=== PATIENT | male | born 1990 | race African-American/Black ===

== ENCOUNTER 2016-03-23 13:42 | Emergency (ER) | payer OTHER ==
[2016-03-23 13:52] VITALS: BP 139/76
--- NOTE | 2016-03-23 15:03 | ERNOTE ---
Date of Service: 03/23/16 Time Seen by Provider: 03/23/16 14:39 Stated Complaint: URI Presenting Symptoms:: cough, runny nose, fever Source: patient Exam Limitations: no limitations Immunizations: IMMUNIZATION HX Immunizations Up to Date Yes History of Influenza Vaccine No Hx Pneumococcal Vaccination No Allergies/Adverse Reactions: Allergies No Known Drug Allergies Allergy (Verified 03/23/16 13:53) Home Medications: HOME MEDICATIONS Albuterol Sulfate [Proair Hfa] 1 - 2 puff IH Q4H PRN #1 inhaler 03/23/16 [Last Taken Unknown] Azithromycin [Zithromax] 500 mg PO NOW #6 tab 03/23/16 [Last Taken Unknown] Benzonatate [Tessalon Perle] 100 mg PO TID PRN #14 capsule 03/23/16 [Last Taken Unknown] Prednisone 50 mg PO DAILY #5 tablet 03/23/16 [Last Taken Unknown] - History of Present Ilness Narrative: Patient comes in with cough that is been going on for greater than 2 weeks, recently seen at another facility, started on an antibiotic, inhaler but 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 [id number] cough medication without any good results, denies any chest pain,abdominal pain, headache or dizziness. Date (Duration): 03/09/16 Timing: constant Severity: mild Frequency/Possible Cause: Reports: occasional episodes Modifying Factors - Worsens: Reports: activity Associated Symptoms: Reports: cough, nasal congestion, nasal drainage, sore throat, fever/chills - states he's had a fever since last night, undocumented Prior Treatment: Reports: recently seen, treated by physician, currently on antibiotics Review of Systems - Review of Systems Constitutional: Present: fever. Absent: chills, diaphoresis, weakness, fatigue , malaise, weight loss ENT: Present: nose congestion, nasal drainage, sore throat Respiratory: Present: cough. Absent: shortness of breath, orthopnea, wheezing Cardiology: Absent: chest pain, palpitations, syncope Gastrointestinal/Abdominal: Absent: nausea, vomiting, diarrhea Musculoskeletal: Present: no symptoms reported Skin: Present: no symptoms reported - Patient's Past Medical History Patient History - Medical: No pertinent hx Patient History - Cardiac/Respiratory: No pertinent hx Patient History - Cancer: No Hx of Cancer Patient History - Surgical Procedures: No surgical history - Social History Living Situations: home Smoking Status: Current every day smoker Have you smoked in the past 12 months: Yes Alcohol Use: occasionally Drug Use: none Physical Exam - Physical Exam General Appearance: Present: wd/wn, alert, no apparent distress Ears, Nose, Throat: Present: normal ENT inspection, sinus pain/drainage, pharyngeal erythema Neck: Present: normal inspection, nontender Respiratory: Present: no respiratory distress, normal breath sounds, no accessory muscle use, chest nontender, lungs clear Cardiovascular/Chest: Present: regular rate, rhythm, no murmur, normal peripheral pulses Gastrointestinal/Abdominal: Present: normal bowel sounds, nontender, no organomegaly Neurological Exam: Present: alert, oriented, normal mood/affect Skin Exam: Present: normal color, warm/dry Lymphatic Exam: Present: no adenopathy ED Progress - Date and Time Seen: Date and Time: 03/23/16 14:50 Stent will be discharged with prescription for antibiotics and inhaler, prednisone, and Tessalon Perles. The patient that this could take some time before clears up. He needs to get on his medications as prescribed and try to get a family doctor the next few days Ring back to the ER with any change or worsening symptoms. warning signs and symptoms have been reviewed with the patient and return back to the ER with good understanding - Vital Signs Patient's Vital Signs:: I have reviewed the patient's vital signs. Vital Signs: Vital Signs 03/23/16 13:48 Temperature 35.4 C L Pulse Rate 89 Respiratory 16 Rate Blood Pressure 139/76 O2 Sat by Pulse 99 Oximetry - Progress/Reassessment Chief Complaint: Upper Respiratory Symptoms Progress:: Unchanged - Transfer of Care Expected Disposition: Discharge Departure - Departure Clinical Impression: Cough Bronchitis, acute Qualifiers: Bronchitis organism: unspecified organism Qualified Code(s): J20.9 - Acute bronchitis, unspecified Disposition: Home self-care Condition: Good Instructions: Acute Bronchitis Prescriptions: Albuterol Sulfate [Proair Hfa] 1 - 2 puff IH Q4H PRN #1 inhaler PRN Reason: Shortness Of Breath Azithromycin [Zithromax] 500 mg PO NOW #6 tab Benzonatate [Tessalon Perle] 100 mg PO TID PRN #14 capsule PRN Reason: Cough Prednisone 50 mg PO DAILY #5 tablet
== END 2016-03-23 15:00 | disposition home or self-care (01) ==
LOC: ER 13:42
DX: J20.9 Acute bronchitis, unspecified (principal); F17.210 Nicotine dependence, cigarettes, uncomplicated

== ENCOUNTER 2016-04-13 16:02 | Emergency (ER) | payer OTHER ==
[2016-04-13 16:15] VITALS: BP 152/87
--- NOTE | 2016-04-13 17:52 | ERNOTE ---
Time Seen by Provider: 04/13/16 17:30 Stated Complaint: COLD COUGH Presenting Symptoms:: cough Immunizations: IMMUNIZATION HX Immunizations Up to Date Yes History of Influenza Vaccine No Hx Pneumococcal Vaccination No Allergies/Adverse Reactions: Allergies benzonatate [From Fredy Squires] Allergy (Intermediate, Verified 04/13/16 16: 17) Swelling of Throat No Known Drug Allergies Allergy (Verified 03/23/16 13:53) Home Medications: HOME MEDICATIONS Albuterol Sulfate [Proair Hfa] 1 - 2 puff IH Q4H PRN #1 inhaler 03/23/16 [Last Taken Unknown] Promethazine HCl/Codeine [Phenergan W/Codeine Syrup] 5 ml PO QPM PRN #60 ml 05/25 [Last Taken Unknown] - History of Present Ilness Narrative: Patient has had a cough for a week, dry mainly, no shortness of breath. He was seen for a URI a couple of weeks ago and symptoms resolved, was exposed to his young children. He has been using albuterol, mucinex and another over the counter medication with some relieve. His main concern is to get medication that helps him sleep as the cough keeps him from sleeping Review of Systems - Review of Systems Constitutional: Present: recent illness. Absent: fever, chills ENT: Present: nose pain, nose congestion. Absent: sore throat Respiratory: Present: See HPI, cough. Absent: shortness of breath Cardiology: Absent: chest pain Gastrointestinal/Abdominal: Absent: nausea, vomiting, diarrhea, abdominal pain Musculoskeletal: Absent: muscle pain Skin: Absent: rash Neurological: Present: headache - Patient's Past Medical History Patient History - Medical: No pertinent hx Patient History - Cardiac/Respiratory: No pertinent hx Patient History - Cancer: No Hx of Cancer Patient History - Surgical Procedures: No surgical history Patient History - Other: None - Social History Living Situations: home Abuse History: No History of abuse Psych History: No pertinent hx Smoking Status: Current every day smoker Alcohol Use: occasionally Drug Use: none - Immunizations Immunizations Up to Date: Yes Hx Pneumococcal Vaccination: No History of Influenza Vaccine: No Physical Exam - Physical Exam General Appearance: Present: wd/wn, alert, no apparent distress Eye Exam: Normal inspection: bilateral Ears, Nose, Throat: Present: nasal congestion, normal pharynx Neck: Absent: lymphadenopathy (R), lymphadenopathy (L) Respiratory: Present: no respiratory distress, normal breath sounds, no accessory muscle use, lungs clear Cardiovascular/Chest: Present: regular rate, rhythm, no murmur Neurological Exam: Present: alert, oriented, normal mood/affect Skin Exam: Present: normal color, warm/dry ED Progress - Vital Signs Patient's Vital Signs:: I have reviewed the patient's vital signs. Vital Signs: Vital Signs 04/13/16 16:11 Temperature 36.0 C L Pulse Rate 113 H Respiratory 20 Rate Blood Pressure 152/87 O2 Sat by Pulse 99 Oximetry - Progress/Reassessment Chief Complaint: Cough Departure - Departure Clinical Impression: Upper respiratory infection Qualifiers: URI type: unspecified viral URI Qualified Code(s): J06.9 - Acute upper respiratory infection, unspecified Disposition: Home self-care Condition: Good Instructions: Upper Respiratory Infection, Adult, [id number] Additional Instructions: call to get established with a primary care doctor Referrals: Emily Jenkins DO [Staff Physician] - Prescriptions: Promethazine HCl/Codeine [Phenergan W/Codeine Syrup] 5 ml PO QPM PRN #60 ml PRN Reason: Cough
== END 2016-04-13 18:17 | disposition home or self-care (01) ==
LOC: ER 16:02
DX: J06.9 Acute upper respiratory infection, unspecified (principal); F17.210 Nicotine dependence, cigarettes, uncomplicated